=== PATIENT | male | born 1960 | race Caucasian/White ===

== ENCOUNTER 2020-04-19 03:38 | Emergency (ER) | payer BC, OTHER ==
[2020-04-19 03:49] VITALS: BMI 27.8
[2020-04-19] MEDS ORDERED: ONDANSETRON 4 MG/2 ML VIAL IVPUSH ONE (04:41)
[2020-04-19 04:47] LABS: BASO % 0.3 % (0-2.0); EOS % 0.5 % (0-4.5); HEMATOCRIT 40.9 % (35.4-49); HEMOGLOBIN 13.9 GM/dL (11.7-16.9); MCH 31.1 pg (25.7-33.7); MEAN CELL VOLUME 91.4 fl (80-96); MEAN PLT VOLUME 8.9 fl (7.5-11.1); MONO % 7.5 % (3.8-10.2); NEUT % 71.7 % (42.8-82.8); PLATELET COUNT 236 K/MM3 (134-434); RBC 4.47 M/mm3 (4.00-5.60); WHITE BLOOD COUNT 10.5 K/mm3 (4.0-10.0)
[2020-04-19 05:01] LABS: CHLORIDE 103 mmol/L (98-107); POTASSIUM 3.7 mmol/L (3.5-5.1); SODIUM 138 mmol/L (136-145)
[2020-04-19 05:03] LABS: ALBUMIN 3.7 g/dl (3.4-5.0); BLOOD UREA NITROGEN 14.1 mg/dL (7-18)
[2020-04-19 05:04] LABS: GLUCOSE,RANDOM 131 mg/dL (74-106); MAGNESIUM 2.2 mg/dL (1.8-2.4)
[2020-04-19 05:06] LABS: SGOT/AST 20 U/L (15-37); SGPT/ALT 39 U/L (13-61)
[2020-04-19 05:08] LABS: BILIRUBIN,TOTAL 0.6 mg/dL (0.2-1); TOT PROT 7.3 g/dl (6.4-8.2)
[2020-04-19 05:09] LABS: ALK PHOS 65 U/L (45-117)
[2020-04-19] MEDS ORDERED: ONDANSETRON *ODT* 4 MG TABLET ONE (05:32)
[2020-04-19] MEDS ORDERED: ONDANSETRON 4 MG/2 ML VIAL ONE (05:34)
[2020-04-19 05:40] LABS: ANION GAP 5 MMOL/L (8-16); CO2 30 mmol/L (21-32)
[2020-04-19 12:11] VITALS: BP 124/74; PULSE 78; TEMP 98
== END 2020-04-19 12:11 | disposition home or self-care (01) ==
LOC: JER 03:38 → JERBED 06:23 → UNDOADMIN 06:23 → JER 12:11
PROC: 3E033GC Introduction of Other Therapeutic Substance into Peripheral Vein, Percutaneous Approach (ICD-10-PCS; principal; 2020-04-19)
DX: R55 Syncope and collapse (principal); S09.90XA Unspecified injury of head, initial encounter; M25.512 Pain in left shoulder
CPT/HCPCS: 36415; 70450-TC; 71045-TC-FY; 73030-TC-RT-FY; 80053; 82550; 82553; 82962; 83735; 84484; 85025; 93005; 93010; 99285-25; C9803; U0003

== ENCOUNTER 2020-06-14 19:29 | Emergency (ER) | payer BC, OTHER ==
[2020-06-14 19:36] VITALS: PULSE 64; TEMP 98.7; BMI 28.5
[2020-06-14 21:29] VITALS: BP 140/88
== END 2020-06-14 21:37 | disposition home or self-care (01) ==
LOC: JER 19:29
DX: R03.0 Elevated blood-pressure reading, without diagnosis of hypertension (principal)
CPT/HCPCS: 93005; 93010; 99283-25